=== PATIENT | male | born 1985 | race American Indian/Alaskan Native ===

== ENCOUNTER 2017-11-30 23:56 | Emergency (ER) | payer MEDICAID, OTHER ==
[2017-12-01 01:06] VITALS: BP 124/83; PULSE 64; RESP 18; TEMP 98.3; O2SAT 100
[2017-12-01 01:07] VITALS: BMI 27.9
--- NOTE | 2017-12-01 01:31 | ED PDOC ---
Arrival/HPI - General Chief Complaint: Groin Pain Time Seen by Provider: 12/01/17 01:25 Historian: Patient EM Caveat: Acuity of Condition - History of Present Illness Narrative History of Present Illness (Text): 12/01/17 01:34 Pt is a 32 yr old male with no PMH who complains of a newly found, non-painful lump on the left side of the groin x 1 day. Pt states that he often has some irritation in that area due to heat and sweat x 6 months but has never noticed a lump before. Denies fever, rash, shortness of breath, nausea, vomiting, diarrhea, back pain, change in urine or stool. Reports no rash or groin pain; is sexually active with one partner for 10 yrs and has not been diagnosed with an STD to date. Time/Duration: Prior to Arrival Symptom Onset: Sudden Symptom Course: Unchanged Quality: Unable to Describe Severity Level: 1 Activities at Onset: Rest Context: Home Past Medical History - Provider Review Nursing Documentation Reviewed: Yes - Travel History Have you recently traveled outside [place] w/in the past 3 mons?: No - Past History Past History: Non-Contributing - Infectious Disease Hx of Infectious Diseases: None - Psychiatric Hx Psychophysiologic Disorder: No Hx Substance Use: No - Anesthesia Hx Anesthesia: No Family/Social History - Physician Review Nursing Documentation Reviewed: Yes Family/Social History: Unknown Family HX Smoking Status: Light Smoker < 10 Cigarettes Daily Hx Alcohol Use: No Hx Substance Use: No Allergies/Home Meds Allergies/Adverse Reactions: Allergies No Known Allergies Allergy (Verified 12/01/17 01:06) Home Medications: Home Meds Medication Instructions Recorded Confirmed No Known Home Med 12/01/17 12/01/17 Review of Systems - Review of Systems Constitutional: Normal. absent: Fevers Eyes: Normal ENT: Normal Respiratory: Normal Cardiovascular: Normal Gastrointestinal: Normal Genitourinary Male: Normal, Other (raised small lump on left groin). absent: Dysuria, Frequency, Hematuria, Urinary Output Changes Musculoskeletal: Normal Skin: Normal Neurological: Normal Endocrine: Normal Hemo/Lymphatic: Adenopathy Psychiatric: Anxiety Physical Exam Vital Signs Reviewed: Yes Vital Signs Temp Pulse Resp BP Pulse Ox 12/01/17 02:17 98.3 F 64 18 124/83 100 12/01/17 01:05 98.3 F 64 18 124/83 100 Temperature: Afebrile Blood Pressure: Normal Pulse: Regular Respiratory Rate: Normal Appearance: Positive for: Well-Appearing, Non-Toxic, Comfortable Pain Distress: None Mental Status: Positive for: Alert and Oriented X 3 - Systems Exam Respiratory/Chest: Present: Clear to Auscultation, Good Air Exchange. No: Respiratory Distress, Accessory Muscle Use Cardiovascular: Present: Regular Rate and Rhythm, Normal S1, S2. No: Murmurs Abdomen: Present: Normal Bowel Sounds. No: Tenderness, Distention, Peritoneal Signs Genitourinary Male: Present: Normal External Genitalia, Other (enlarged groin lymph node). No: Lesions, Penile Discharge, Testicle Tenderness, Penile Swelling, Testicle Swelling Back: Present: Normal Inspection Upper Extremity: Present: Normal Inspection, Normal ROM, NORMAL PULSES. No: Cyanosis, Edema Lower Extremity: Present: Normal Inspection. No: Edema Neurological: Present: GCS=15, CN II-XII Intact, Speech Normal Skin: Present: Warm, Dry, Normal Color. No: Rashes Lymphatic: Present: Inguinal Adenopathy (left). No: Cervical Adenopathy, Axillary Adenopathy Psychiatric: Present: Alert, Oriented x 3, Normal Insight, Normal Concentration Medical Decision Making ED Course and Treatment: 12/01/17 01:39 Impression Pt is a 32 yr old male with no PMH who complains of a newly found, non-painful lump on the left side of the groin x 1 day On exam, raised, mildly-painful lymph node with deep palpation on the left inguinal area; the rest of the exam is benign Plan UA to r/o UTI or STI assess and dispo Progress note awaiting UA results No sig findings on UA advised pt that we would contact if any other positive findings after d/c and treat accordingly; f/u with PMD recommended VSS on d/c - Lab Interpretations Lab Results: Lab Results 12/01/17 01:50: Urine Color Yellow, Urine Appearance Sl cloudy, Urine pH 6.5, Ur Specific [place] 1.015, Urine Protein Negative, Urine Glucose (UA) Negative, Urine Ketones Trace H, Urine Blood Trace-lysed H, Urine Nitrate Negative, Urine Bilirubin Negative, Urine Urobilinogen 1.0 H, Ur Leukocyte Esterase Negative, Urine RBC 0 - 2, Urine WBC Negative, Ur Epithelial Cells 4 - 5, Urine Bacteria Mod Disposition/Present on Arrival - Present on Arrival Any Indicators Present on Arrival: Yes History of DVT/PE: No History of Uncontrolled Diabetes: No Urinary Catheter: No History of Decub. Ulcer: No History Surgical Site Infection Following: None - Disposition Have Diagnosis and Disposition been Completed?: Yes Diagnosis: Lymphadenopathy, Inguinal lymphadenitis Disposition: HOME/ ROUTINE Disposition Time: 02:08 Patient Plan: Discharge Condition: GOOD Additional Instructions: Oswaldo, thank you for letting us take care of you today. Your provider was RADHA Freeman. You were treated for Inguinal Lymphadenitis. The emergency medical care you received today was directed at your acute symptoms. If you were prescribed any medication, please fill it and take as directed. It may take several days for your symptoms to resolve. Return to the Emergency Department if your symptoms worsen, do not improve, or if you have any other problems. If you notice a significant increase in swelling, redness or discharge, return to the Emergency Department or see you Primary Doctor for further care Please contact your doctor or call one of the physicians/clinics you have been referred to that are listed on the Patient Visit Information form that is included in your discharge packet. Bring any paperwork you were given at discharge with you along with any medications you are taking to your follow up visit. Our treatment cannot replace ongoing medical care by a primary care provider (PCP) outside of the emergency department. Thank you for allowing the [facility] team to be part of your care today. If you had a blood, urine, or wound culture: It will take several days for the results, if any change in treatment is needed we will contact you. If you had an STI test: It will take 48 hours for the results. Please call after 1 week if you have not heard back. Forms: [employer] (Mauritian)
[2017-12-01 02:02] LABS: PH,URINE 6.5 (4.7-8.0); URINE BILIRUBIN NEGATIVE (NEGATIVE); URINE BLOOD TRACE-LYSED (NEGATIVE); URINE GLUCOSE (UA) NEGATIVE (NEGATIVE); URINE LEUKOCYTE ESTERASE NEGATIVE Leu/uL (NEGATIVE); URINE PROTEIN NEGATIVE mg/dL (<30 mg/dL)
[2017-12-01 02:07] LABS: URINE APPEARANCE SL CLOUDY (CLEAR); URINE COLOR YELLOW (YELLOW)
[2017-12-01 03:14] LABS: URINE BACTERIA MOD (NEG); URINE RBC 0 - 2 /hpf (0-2); URINE WBC NEGATIVE /hpf (0-6)
== END 2017-12-01 02:15 | disposition home or self-care (01) ==
LOC: ED 23:56
DX: I88.9 Nonspecific lymphadenitis, unspecified (principal); R59.1 Generalized enlarged lymph nodes; F17.210 Nicotine dependence, cigarettes, uncomplicated

== ENCOUNTER 2018-08-19 16:46 | Emergency (ER) | payer MEDICAID ==
[2018-08-19 16:47] VITALS: BMI 27.9
--- NOTE | 2018-08-19 18:30 | ED PDOC ---
Arrival/HPI - General Time Seen by Provider: 08/19/18 17:22 Historian: Patient - History of Present Illness Narrative History of Present Illness (Text): 08/19/18 18:30 A 32 year old male with no significant past medical history includes presents to the emergency department for evaluation of possible influenza. Patient reports his family around him is symptomatic and his daughter was tested positive yesterday for type A flu. Patient notes his son has recently received the flu vaccine. Patient denies any cough, sore throat, vomiting, headache, diarrhea, or any other complaints. PMD: Abeba Lara Time/Duration: Prior to Arrival Symptom Onset: Other (none) Symptom Course: Other (none) Activities at Onset: Rest Context: Home Past Medical History - Provider Review Nursing Documentation Reviewed: Yes - Past History Past History: Non-Contributing - Infectious Disease Hx of Infectious Diseases: None - Psychiatric Hx Psychophysiologic Disorder: No Hx Substance Use: No - Anesthesia Hx Anesthesia: No Family/Social History - Physician Review Nursing Documentation Reviewed: Yes Family/Social History: No Known Family HX Smoking Status: Light Smoker < 10 Cigarettes Daily Hx Alcohol Use: No Hx Substance Use: No Allergies/Home Meds Allergies/Adverse Reactions: Allergies No Known Allergies Allergy (Verified 08/19/18 12:45) Home Medications: Home Meds Medication Instructions Recorded Confirmed No Known Home Med 12/01/17 12/01/17 Review of Systems - Physician Review All systems were reviewed & negative as marked: Yes - Review of Systems Constitutional: absent: Fevers ENT: absent: Sore Throat Respiratory: absent: Cough Gastrointestinal: absent: Diarrhea, Nausea, Vomiting Physical Exam - Physical Exam Narrative Physical Exam (Text): 08/19/18 18:32 Gen: VS reviewed, alert, well developed, well nourished, nontoxic, mild distress. ENT: normal pharynx. Eye: EOMI, PERRL. Neck: no JVD, supple, no adenopathy. CV: regular rate, regular rhythm, no rubs, no murmur, no gallops, S1, S2, pulses equal and strong. Pulm: no distress, clear to auscultation, no wheeze, no rhonchi, breath sounds equal, no rales. Abd: soft, nontender, no guarding, no rebound, no rigidity, normal bowel sounds. Ext: no edema. Skin: good color, no rash, no cyanosis. Psych: responds appropriately to questions, normal affect. Neuro: oriented x 3, CN2-12 intact grossly, motor intact, sensation intact. Medical Decision Making ED Course and Treatment: 08/19/18 18:28 Impression: 41 year old male presenting to the emergency room complaining of possible flu. Plan: -- Reassess and disposition Prior Visits: Notes and results from previous visits were reviewed. Progress Notes: 08/19/18 18:28 patient seen for medical screening exam for positive sick contacts for influenza. patient does not exhibit any s/s of illness at this time. patient is young and healthy. testing not indicated at this time. stable for discharge. Disposition/Present on Arrival - Present on Arrival Any Indicators Present on Arrival: No History of DVT/PE: No History of Uncontrolled Diabetes: No Urinary Catheter: No History Surgical Site Infection Following: None - Disposition Have Diagnosis and Disposition been Completed?: Yes Diagnosis: Encounter for medical screening examination Disposition: HOME/ ROUTINE Disposition Time: 18:29 Patient Plan: Discharge Patient Problems: Current Active Problems Problem Status Onset Encounter for medical screening examination Acute Condition: STABLE Discharge Instructions (ExitCare): Flu Referrals: Abeba Nguyen MD [Primary Care Provider] - Follow up with primary
[2018-08-19 18:41] VITALS: BP 126/71; PULSE 88; RESP 20; TEMP 98.8; O2SAT 98
== END 2018-08-19 18:49 | disposition home or self-care (01) ==
LOC: ED 16:46
DX: Z13.9 Encounter for screening, unspecified (principal); F17.210 Nicotine dependence, cigarettes, uncomplicated